=== PATIENT | female | born 2000 | race Caucasian/White ===

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

== ENCOUNTER → 2020-03-03 | Outpatient (CLI) | payer OTHER ==
[~2020-03-03] MED LIST changes: +AMOXICILLIN875 MG PO; +ATIVAN0.5 MG PO; +CEFUROXIME250 MG PO; +CEPHALEXIN500 MG PO; +CLARITIN10 M2 PO; +CORTISPORIN OTI10 M1 EARRT; +KEFLEX CAP 500500 MG PO; +MACROBID 100 M100 MG PO; +REGLAN10 MG PO; +ZOFRAN ODT 4 MG4 MG PO; +ZOFRAN ODT 4 MG4 MG SL; +ZOVIRAX 200 MG200 MG PO
== END ==
LOC: HEART 5 15:00
DX: R00.2 Palpitations (principal)
CPT/HCPCS: 93306

== ENCOUNTER 2020-03-21 01:18 | Emergency (ER) | payer OTHER ==
[~2020-03-21 01:18] MED LIST changes: -ATIVAN0.5 MG PO; -CEPHALEXIN500 MG PO; -ZOFRAN ODT 4 MG4 MG PO
== END 2020-03-21 01:35 | disposition left against medical advice (07) ==
LOC: ER1 01:18
DX: O86.4 Pyrexia of unknown origin following delivery (principal); O90.89 Other complications of the puerperium, not elsewhere classified; R51.9 Headache, unspecified; Z98.890 Other specified postprocedural states; Z53.21 Procedure and treatment not carried out due to patient leaving prior to being seen by health care provider

== ENCOUNTER 2020-05-08 22:30 | Emergency (ER) | payer OTHER ==
[2020-05-09 01:19] LABS: HEMOGLOBIN 11.2 gm/dl (12.3-15.3); RED BLOOD COUNT 4.07 M/UL (4.00-5.10); WHITE BLOOD COUNT 9.5 K/UL (4.5-11.0)
[2020-05-09] MEDS ORDERED: CEPHALEXIN500 MG PO (01:50)
[2020-05-09] MEDS ORDERED: ZOFRAN ODT 4 MG4 MG PO (01:50)
[2020-05-09 02:03] LABS: BUN/CREATININE RATIO 27 (0-10)
== END 2020-05-09 03:45 | disposition home or self-care (01) ==
LOC: ER1 22:30
PROVIDERS: Physician Assistant
DX: N39.0 Urinary tract infection, site not specified (principal)
CPT/HCPCS: 80053; 80307; 81001; 83690; 84703; 85025; 96365; 99284; J0696

== ENCOUNTER 2020-06-22 00:19 | Emergency (ER) | payer OTHER ==
[~2020-06-22 00:19] MED LIST changes: +CEPHALEXIN500 MG PO; +ZOFRAN ODT 4 MG4 MG PO
[2020-06-22] MEDS ORDERED: ATIVAN0.5 MG PO (01:22)
== END 2020-06-22 01:33 | disposition home or self-care (01) ==
LOC: ER1 00:19
DX: H93.13 Tinnitus, bilateral (principal); F17.210 Nicotine dependence, cigarettes, uncomplicated
CPT/HCPCS: 99283

== ENCOUNTER 2021-03-14 09:18 | Emergency (ER) | payer OTHER ==
[~2021-03-14 09:18] MED LIST changes: +ATIVAN0.5 MG PO
== END 2021-03-14 11:48 | disposition home or self-care (01) ==
LOC: ER1 09:18
DX: J06.9 Acute upper respiratory infection, unspecified (principal); F17.290 Nicotine dependence, other tobacco product, uncomplicated; Z20.822 Contact with and (suspected) exposure to COVID-19
CPT/HCPCS: 0240U; 87081; 87880; 99283

== ENCOUNTER 2021-07-24 07:52 | Emergency (ER) | payer OTHER | END 2021-07-24 10:05 | disposition home or self-care (01) | LOC: ER1 07:52 | DX: J02.9 Acute pharyngitis, unspecified (principal); R09.81 Nasal congestion; Z20.822 Contact with and (suspected) exposure to COVID-19; F17.290 Nicotine dependence, other tobacco product, uncomplicated | CPT/HCPCS: 0240U; 87081; 87880; 99283 ==

== ENCOUNTER 2021-07-27 16:40 | Emergency (ER) | payer OTHER ==
[2021-07-27 17:56] LABS: BORDETELLA PARAPERTUSSIS Not Detected (Not Detectd); BORDETELLA PERTUSSIS Not Detected (Not Detectd); CHLAMYDIA PNEUMONIAE Not Detected (Not Detectd); CORONAVIRUS HKU1 Not Detected (Not Detectd); CORONAVIRUS NL63 Not Detected (Not Detectd); CORONAVIRUS OC43 Not Detected (Not Detectd); CORONOAVIRUS 229E Not Detected (Not Detectd); HUMAN METAPNEUMOVIRUS Not Detected (Not Detectd); HUMAN RHINOVIRUS/ENTEROVIRUS Not Detected (Not Detectd); INFLUENZA A Not Detected (Not Detectd); INFLUENZA B Not Detected (Not Detectd); MYCOPLASMA PNEUMONIAE Not Detected (Not Detectd); PARAINFLUENZA VIRUS 1 Not Detected (Not Detectd); PARAINFLUENZA VIRUS 2 Not Detected (Not Detectd); PARAINFLUENZA VIRUS 3 Not Detected (Not Detectd); PARAINFLUENZA VIRUS 4 Not Detected (Not Detectd); RESPIRATORY SYNCYTIAL VIRUS Not Detected (Not Detectd)
[2021-07-27 18:12] LABS: HEMOGLOBIN 10.1 gm/dl (12.3-15.3); RED BLOOD COUNT 3.53 M/UL (4.00-5.10); WHITE BLOOD COUNT 10.7 K/UL (4.5-11.0)
[2021-07-27 18:37] LABS: BUN/CREATININE RATIO 14 (0-10)
[2021-07-27 18:51] LABS: SARS-CoV-2 NOT DETECTED (Not Detectd)
[2021-07-27] MEDS ORDERED: CEFUROXIME500 MG PO (20:26)
== END 2021-07-27 20:55 | disposition home or self-care (01) ==
LOC: ER1 16:40
PROVIDERS: Preventive Medicine Occupational Medicine
DX: N39.0 Urinary tract infection, site not specified (principal); F17.200 Nicotine dependence, unspecified, uncomplicated; Z20.822 Contact with and (suspected) exposure to COVID-19
CPT/HCPCS: 71045; 80053; 81001; 83605; 83690; 85025; 85652; 86140; 86403; 87040; 87077; 87086; 87186; 87633; 96374; 99283; J0696